=== PATIENT | male | born 1935 | race Caucasian/White ===

== ENCOUNTER → 2016-08-27 | Outpatient (CLI) | payer OTHER ==
[~2016-08-27] MED LIST: AMLODIPINE BESYL5 MG PO; BYSTOLIC10 MG PO; COUMADIN2.5 MG PO; COUMADIN5 MG PO; LISINOPRIL PO; METOPROLOL TART25 MG PO; MULTAQ400 MG PO; NEURONTIN PO; PERCOCET 10/6501 TA1 PO; PERIACTIN4 MG PO; PRILOSEC PO; PRILOSEC20 MG PO; PROVENTIL2 MG; RYTHMOL PO; SYMBICORT; SYMBICORT80 INH; TRIAMTERENE/HCT1 CA3 PO; VITAMIN B 12; [UNRECOGNIZED DRUG - OTHER] PO; [UNRECOGNIZED DRUG - REMARK]
--- NOTE | ~2016-08-27 | CT55 ---
[facility] A Service of [facility] / [facility] RADIOLOGY TEXT RESULTS PATIENT: ARI CONWAY LOCATION: [facility] : 33 UNIT #: [id number] AGE: [address]: Claus Ramirez MD SEX: M ORDER DR: [id number] [address] [address] [id number] O MR#: [id number] Acc #: [id number] NAME: ARI CONWAY : 1935 SEX: M STUDY DATE/TIME: 08/27/2016 17:13 UNIT: [facility] ROOM: STUDY DESCRIPTION: CT Chest W Con Attending Physician: Claus Ramirez M.D. Referring Physician: Claus Ramirez M.D. Ordering Physician: Adele Rosales Aprn Primary Care Physician: Adele Rosales Aprn MEDICAL IMAGING REPORT This report is preliminary unless electronic signature is present. EXAM CT chest with contrast, 08/27/2016 17:13 hours HISTORY 81-year-old man with history of lung cancer with lesions in lymph nodes and liver. History of chemo and radiation therapy. Observation for suspected malignant neoplasm. COMPARISON Chest CT, 05/25/[address] images were obtained from the lung apices through the adrenal glands. Sagittal and coronal reconstructions were performed. Contrast was Isovue-370, 100 mL IV. Total exam DLP for chest, abdomen and pelvis exam today is 1,675 mGy-cm. This CT exam was performed with one or more of the following radiation dose reduction techniques: automatic exposure control, adjustment of mA and/or kV according to patient size, and iterative reconstruction. FINDINGS Images through the thoracic inlet demonstrate a nodule along the posterior margin of the thyroid unchanged, likely benign. Images through the chest demonstrate slight increase in mediastinal and hilar lymph nodes. Example anterior mediastinal node is 1.5 cm, previously 0.8 cm. Example precarinal node is 1.5 cm, previously 0.8 cm. There is a right hilar node measuring 3.1 x 2.9 cm, previously 2.6 x 2.8 cm. There is a left hilar node measuring 2.8 x 2.1 cm, previously 3.5 x 2.8 cm. There is a moderately large hiatal hernia without change. There is an interval decrease in a subcutaneous nodule over the right STS. [facility] A Service of [facility] RADIOLOGY TEXT RESULTS PATIENT: ARI CONWAY [facility] [id number] : 33 UNIT #: [id number] AGE: [address]: Claus Ramirez MD SEX: M ORDER DR: chest wall, image 17, now 1.2 x 0.9 cm, previously 2.3 x 1.5 cm. There is decrease in right axillary adenopathy with example node 1.9 x 1.5 cm, previously 2.5 x 2.1 cm. Lung window images demonstrate emphysematous changes and areas of chronic linear scarring. Previous nodule in the lateral left upper lobe of the lung now measures 2.4 x 1.1 cm, previously 3.4 x 2.3 cm. Previous nodule right lower lobe now measures 3.7 x 3.4 cm, previously 4.6 x 3.5 cm. No definite new nodules are seen. Please see CT abdomen and pelvis report for findings below the hemidiaphragms. Bone window images demonstrate degenerative changes in the spine. There is no definite lytic or blastic bone lesion. IMPRESSION 1. There is a mixed response to interval therapy with definite interval decrease in subcutaneous nodule right anterior chest wall, right axillary adenopathy and decrease in size of the left upper lobe and right lower lobe lung nodules. Patient has had however increase in mediastinal lymph nodes and increase in the right hilar lymph node with measurements above and slight decrease in the left hilar lymph node. No definite new lung lesions are seen. No bone lesions are seen. 2. Please see separately dictated report for findings below the hemidiaphragms on the CT abdomen and pelvis exam from today. Dictated by... Enid Chappell M.D. THIS IS AN ELECTRONICALLY VERIFIED REPORT Enid Chappell M.D. at 08/28/2016 6:17 PM Charlie TD: 08/28/2016 15:49 JOB #: [id number] MEDICAL IMAGING REPORT
--- NOTE | ~2016-08-27 | CT2 ---
[facility] A Service of [facility] RADIOLOGY TEXT RESULTS PATIENT: ARI CONWAY LOCATION: [facility] : 33 UNIT #: [id number] AGE: [address]: Claus Ramirez MD SEX: M ORDER DR: [id number] [address] [address] [id number] O MR#: [id number] Acc #: [id number] NAME: ARI CONWAY : 1935 SEX: M STUDY DATE/TIME: 08/27/2016 16:40 UNIT: [facility] ROOM: STUDY DESCRIPTION: CT Abd and Pelv W Cont Attending Physician: Claus Ramirez M.D. Referring Physician: Claus Ramirez M.D. Ordering Physician: Adele Rosales Aprn Primary Care Physician: Adele Rosales Aprn MEDICAL IMAGING REPORT This report is preliminary unless electronic signature is present. EXAM CT of the abdomen and pelvis with IV contrast media HISTORY Lung cancer, metastatic diagnosed May 2016. Observation of malignant process. TECHNIQUE Transaxial imaging of the abdomen and pelvis was performed with IV contrast media. This CT exam was performed with one or more of the following radiation dose reduction techniques: automatic exposure control, adjustment of mA and/or kV according to patient size, and iterative reconstruction. FINDINGS Scans through the lung bases show severe emphysematous lung disease. Scans through the liver shows several small hypodense lesions within the right lobe. The largest of these measures about 8.0 mm in diameter. Spleen is normal. Pancreas normal. Adrenal glands are normal. Patient has a horseshoe kidney. There is a soft tissue nodule in the fat adjacent to the upper pole of the kidney measuring 1.3 cm that is not seen previously. Note is made of a large hiatal hernia. There is a nodule identified in the fat inferolateral to the lower aspect of the right kidney measuring 1.5 cm. There is a small nodule anterior to Gerota's fascia on the right measuring 11.0 mm. There is a mesenteric mass measuring about 1.6 cm. No obvious retroperitoneal lymphadenopathy is seen. There are advanced degenerative changes in the spine. The patient has had a right hip arthroplasty. No obvious bone metastasis is identified. There is a soft tissue nodule in the anterior cardiophrenic space measuring 1.7 cm. Hypodense lesion is seen in segment 4 of the liver measuring about 1.2 cm and was present on the patient's previous STS. [facility] A Service of [facility] RADIOLOGY TEXT RESULTS PATIENT: ARI CONWAY LOCATION: [facility] : 33 UNIT #: [id number] AGE: [address]: Claus Ramirez MD SEX: M ORDER DR: chest CT of May 2016. CONCLUSION 1. Multiple small liver metastases. These are not seen on the patient's old CT from 2005 although they are noted on the study of May 2016. The largest of these is in segment 4 measuring 12.0 mm and is stable. 2. Large hiatal hernia. 3. Evidence of metastatic disease in the anterior cardiophrenic space. There is also evidence of peritoneal implants as well as mesenteric implants, the largest of which measures about 1.6 cm. 4. Status post cholecystectomy. 5. Horseshoe kidney. 6. 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 7. Status post right hip arthroplasty. Dictated by... Rell Resendiz M.D. THIS IS AN ELECTRONICALLY VERIFIED REPORT Rell Resendiz M.D. at 08/31/2016 5:10 PM Valerie TD: 08/28/2016 08:36 JOB #: [id number] MEDICAL IMAGING REPORT
[2016-08-27 16:51] LABS: POC - CREATININE 1.27 mg/dL (0.64-1.27)
== END | disposition home or self-care (01) ==
LOC: SCT 16:25
PROVIDERS: Internal Medicine Hematology & Oncology
DX: C34.31 Malignant neoplasm of lower lobe, right bronchus or lung (principal); C78.7 Secondary malignant neoplasm of liver and intrahepatic bile duct; C77.8 Secondary and unspecified malignant neoplasm of lymph nodes of multiple regions; K44.9 Diaphragmatic hernia without obstruction or gangrene; Q63.1 Lobulated, fused and horseshoe kidney; M47.819 Spondylosis without myelopathy or radiculopathy, site unspecified; R59.0 Localized enlarged lymph nodes; Z96.641 Presence of right artificial hip joint; Z98.890 Other specified postprocedural states
CPT/HCPCS: 71260; 74177; 82565; Q9967